=== PATIENT | female | born 1955 | race Caucasian/White ===

== ENCOUNTER 2018-10-09 14:24 | Inpatient (IN) | payer MEDICARE, OTHER ==
[~2018-10-09] VITALS: Ht 152.4 cm; Wt 68.9 kg
--- NOTE | 2018-10-09 14:44 | NUR ---
Dr Dutta at bedside talking to patient and daughter.
[2018-10-09] MEDS ORDERED: ESCI20TA PO (14:57)
[2018-10-09] MEDS ORDERED: RISP2TAB5 PO (14:57)
[2018-10-09] MEDS ORDERED: MEMA10TA PO (14:57)
[2018-10-09 15:11] LABS: BASOPHILS % (AUTO) 0.6 % (0.0-2.0); EOSINOPHILS # (AUTO) 0.2 K/uL (0.0-0.7); EOSINOPHILS % (AUTO) 1.9 % (0.0-7.0); HEMATOCRIT 34.7 % (31.2-41.9); HEMOGLOBIN 11.6 g/dL (10.9-14.3); LYMPHOCYTES % (AUTO) 22.7 % (20.5-51.5); MEAN CORPUSCULAR HEMOGLOBIN 28.7 uug (24.7-32.8); MEAN CORPUSCULAR HGB CONC 33 g/dL (32.3-35.6); MEAN CORPUSCULAR VOLUME 85.9 fL (75.5-95.3); MONOCYTES # (AUTO) 0.5 K/uL (2.0-10.0); MONOCYTES % (AUTO) 5.7 % (0.0-11.0); NEUTROPHILS % (AUTO) 69.1 % (38.5-71.5); PLATELET COUNT (AUTO) 339 K/uL (179-408); RED BLOOD CELL COUNT(AUTO) 4.04 MIL/uL (3.63-4.92); WHITE BLOOD COUNT (AUTO) 8.7 K/uL (3.8-11.8)
[2018-10-09 15:16] LABS: *BILIRUBIN,URIN NEGATIVE (NEGATIVE); *BLOOD, URINE NEGATIVE (NEGATIVE); *CLARITY,URINE CLEAR (CLEAR); *COLOR,URINE YELLOW (YELLOW); *KETONES,URINE NEGATIVE (NEGATIVE); *UROBILINOGEN,URINE 0.2 E.U./dl (NORMAL); LEUKOCYTE ESTERASE ,URINE NEGATIVE (NEGATIVE); NITRITE, URINE NEGATIVE (NEGATIVE); UGLUCOSE NEGATIVE (NEGATIVE)
[2018-10-09 15:17] LABS: CARBON DIOXIDE 27 mmol/L (21-32); CHLORIDE 104 mmol/L (98-107); CREATININE 0.7 mg/dL (0.6-1.3); GLUCOSE 162 mg/dL (74-106); POTASSIUM 3.7 mmol/L (3.5-5.1); UREA NITROGEN, BLOOD 10 mg/dL (7-18)
--- NOTE | 2018-10-09 15:20 | NUR ---
Urine sample received by patient and taken to lab.
[2018-10-09 15:21] LABS: ETHANOL < 3 MG/DL (0-0)
[2018-10-09 15:23] LABS: ALANINE AMINOTRANSFERASE 16 U/L (14-59); ALKALINE PHOSPHATASE 136 U/L (50-136); ASPARTATE AMINOTRANSFERASE 13 U/L (15-37); BILIRUBIN,DIRECT 0.1 mg/dL (0.0-0.2); BILIRUBIN,TOTAL 0.1 mg/dL (0.2-1.0); TOTAL PROTEIN, SERUM 7.6 g/dL (6.4-8.2)
[2018-10-09 15:29] LABS: *AMPHETAMINE, URINE NEGATIVE (NEGATIVE); *BARBITURATE, URINE NEGATIVE (NEGATIVE); *CANNABINOID, URINE NEGATIVE (NEGATIVE); *COCCAINE, URINE NEGATIVE (NEGATIVE); *OPIATE, URINE NEGATIVE (NEGATIVE); *PHENCYCLIDINE SCREEN,URINE NEGATIVE (NEGATIVE)
[2018-10-09 15:44] LABS: THYROID STIMULATING HORMONE 0.981 mIU/mL (0.358-3.740)
--- NOTE | 2018-10-09 15:50 | NUR ---
Patient taken to CT scan.
--- NOTE | 2018-10-09 15:52 | NUR ---
patient taken down for CT.
--- NOTE | 2018-10-09 16:00 | NUR ---
Patient returned from CT
--- NOTE | 2018-10-09 16:08 | NUR ---
Pt medically cleared by Dr Dutta. [facility] team called and spoke to Geovani Ferrer LCSW, ETA 1 hour.
--- NOTE | 2018-10-09 17:52 | NUR ---
Geovani Ferrer in the unit to examine patient.
--- NOTE | 2018-10-09 18:19 | NUR ---
Telephone report given to Tna Smith who questions valid reasons for hold. Crisis team shingle bolt cutter Geovani Ferrer present in the unit and aware.
--- NOTE | 2018-10-09 18:52 | NUR ---
If needed it patient will be transfer after shift report awaiting for medical data entry clerk to have transfer paper work ready.
--- NOTE | 2018-10-09 19:07 | NUR ---
Patient taken to room 145-a via rorono vitals stable
[2018-10-09] MEDS ORDERED: MAGNESIUM HYDROXIDE 30 ML LIQUID UDC PO PRN (20:45)
[2018-10-09] MEDS ORDERED: BLOOD SUGAR DIAGNOSTIC 1 EACH STRIP VI ONE (20:45)
[2018-10-09] MEDS ORDERED: MAG HYDROX/AL HYDROX/SIMETH 30 ML LIQUID UDC PO PRN (20:45)
[2018-10-09 21:25] VITALS: BP 129/59
--- NOTE | 2018-10-09 23:43 | NUR ---
PATIENT RECEIVED @ 1900 VIA [facility] FROM ER. PATIENT HAS FLAT AFFECT, DISORIENTED, AND CONFUSED. PATIENT IN NO APPARENT DISTRESS AND NO AGGRESSIVE BEHAVIOR NOTED WILL CONTINUE TO MONITOR AND REDIRECT NEEDED. PATIENT'S SKIN IS INTACT CHANGED INTO HOSPITAL GOWN AND CHECKED FOR CONTRABAND NONE NOTED. PATIENT HAS MEDICAL BRACELET PLACED IN THE SAFE. PATIENT GIVEN ADVISEMENT AND ADMISSION PACKET AT BEDSIDE. SPOKE WITH DAUGHTER MIESHA AND WAS GIVEN SOME INFORMATION ON PATIENT, PATIENT HAS NO MEDICAL HISTORY AND STATES THAT SHE IS UNABLE TO CARE FOR HER MOTHER AND THE PATIENT WAS STARTING TO TAKE MIESHA'S SEVEN YEAR OLD SON WITH HER. GAVE VISITING HOURS AND DIRECT PHONE NUMBER TO UNIT. PATIENT DENIES PAIN AT THIS TIME AND NO FACIAL GRIMACING NOTED, WILL CONTINUE TO MONITOR. BED IN LOWEST POSITION, BED LOCKED, AND BED ALARM ON WHILE IN BED. PATIENT IS AMBULATORY REQUIRES ASSISTANCE HAS A HISTORY OF FALLS, PHYSICAL THERAPY ORDERED.
[2018-10-10 07:05] LABS: BASOPHILS # (AUTO) 0.1 K/uL (0.0-8.0); BASOPHILS % (AUTO) 0.7 % (0.0-2.0); EOSINOPHILS # (AUTO) 0.2 K/uL (0.0-0.7); EOSINOPHILS % (AUTO) 1.9 % (0.0-7.0); HEMATOCRIT 36.3 % (31.2-41.9); HEMOGLOBIN 12.5 g/dL (10.9-14.3); LYMPHOCYTES # (AUTO) 2.6 K/uL (20.0-40.0); LYMPHOCYTES % (AUTO) 31.8 % (20.5-51.5); MEAN CORPUSCULAR HEMOGLOBIN 29.1 uug (24.7-32.8); MEAN CORPUSCULAR HGB CONC 34 g/dL (32.3-35.6); MEAN CORPUSCULAR VOLUME 84.7 fL (75.5-95.3); MONOCYTES # (AUTO) 0.6 K/uL (2.0-10.0); NEUTROPHILS # (AUTO) 4.8 K/uL (1.8-8.9); NEUTROPHILS % (AUTO) 58.6 % (38.5-71.5); PLATELET COUNT (AUTO) 359 K/uL (179-408); RED BLOOD CELL COUNT(AUTO) 4.29 MIL/uL (3.63-4.92); WHITE BLOOD COUNT (AUTO) 8.2 K/uL (3.8-11.8)
[2018-10-10 07:09] LABS: BILIRUBIN,TOTAL 0.3 mg/dL (0.2-1.0); CREATININE 0.7 mg/dL (0.6-1.3); TOTAL PROTEIN, SERUM 7.4 g/dL (6.4-8.2)
[2018-10-10 07:30] VITALS: BP 106/62
--- NOTE | 2018-10-10 11:40 | NUR ---
FIREARMS REPORT: Director Of Clinical Applications completed and submitted a [employer] firearms report for [address] Disability certification. A copy of report has been placed in patient chart.
--- NOTE | 2018-10-10 14:20 | NUR ---
Initial Discharge Planning Note: Patient currently resides at home [[address], [place] [address]] with her daughter Lois Birmingham [[phone]] and her 7-year old grandson. Patient's daughter requesting placement for patient as she is unable to provide 24/7 supervision for patient and patient has increased nomadic and delusional behavior. Machine Repairman will assist daugther with placement coordination. Machine Repairman will continue to meet with patient, and collaborate with patient, family, and MD on a safe and proper discharge plan.
[2018-10-10 16:00] VITALS: BP 135/70
[2018-10-10] MEDS: HALOPERIDOL 5 MG TABLET PO SCH (17:29)
--- NOTE | 2018-10-10 19:30 | NUR ---
Patient received into care, walking in hallway. Patient is alert and oriented x1. Patient has no complaints of pain or discomfort at this time. Reorientation needed to direct patient to room when patient asked for bathroom during change of shift. Will continue to monitor.
[2018-10-10 19:46] VITALS: BP 139/72
[2018-10-10] MEDS: DIVALPROEX 250 MG TABLET.DR PO SCH (20:09)
--- NOTE | 2018-10-10 20:56 | NUR ---
Patient refused prescribed depakote.
--- NOTE | 2018-10-11 06:00 | NUR ---
Patient confused and disoriented, sleeping just 1 hour this shift. Frequent visual checks found patient sitting on roommate's beds and other furniture in room. Frequent redirection and reorientation required to get patient to her own bed and her own room, when in hallway. Patient was not compliant with her prescribed depakote, refusing to take her medication as ordered. Nurse explained risks/benefits times three but patient still refused. Safety and fall precaution measures remain in place.
[2018-10-11 08:00] VITALS: BP 109/64
[2018-10-11] MEDS: HALOPERIDOL 5 MG TABLET PO SCH ×2 (08:46→17:59)
[2018-10-11] MEDS: DIVALPROEX 250 MG TABLET.DR PO SCH ×2 (08:46→20:18)
[2018-10-11] MEDS: ESCITALOPRAM OXALATE 10 MG TABLET PO SCH (08:46)
--- NOTE | 2018-10-11 12:30 | NUR ---
Gps/Keysmith- Patient had been wandering around the hallway, while in the activity room per RT.Yuliana observed patient lost her balance and sat on the floor.Assisted patient to a chair. Patient comfused, resistive to care, difficulty following directive even with product developer. Toileted, continent, assisted with her hygiene. Kept her up on her niranjan-chair, assisted with her lunch .
[2018-10-11] MEDS: LORAZEPAM 0.5 MG TABLET PO PRN ×2 (13:16→21:59)
[2018-10-11 16:00] VITALS: BP 117/59
--- NOTE | 2018-10-11 20:00 | NUR ---
Received patient sitting on gerichair, patient Kyrgyz speaking and speaks very little Kazakh. No complaints at the moment. Compliant with medications. Will continue to monitor.
[2018-10-11 21:19] VITALS: BP 114/72
[2018-10-11] MEDS: ACETAMINOPHEN 325 MG TABLET PO PRN (21:59)
--- NOTE | 2018-10-12 05:46 | NUR ---
Patient slept well after taking medication and being made comfortable in bed, total of 5.00 hours. No complaints were made. Attended all needs. Ensured safety and comfort. No other untoward events noted.
[2018-10-12 07:30] VITALS: BP 116/55
[2018-10-12] MEDS: DIVALPROEX 250 MG TABLET.DR PO SCH ×3 (08:48→20:16)
[2018-10-12] MEDS: ESCITALOPRAM OXALATE 10 MG TABLET PO SCH (08:48)
[2018-10-12] MEDS: HALOPERIDOL 5 MG TABLET PO SCH ×2 (08:48→17:27)
--- NOTE | 2018-10-12 10:28 | NUR ---
Gps/Athletic Scout- Confused, constant redirections, speech incoherent, needed verbal cueing in sequencing tasks, difficulty following simple directions. Monitored closely for safety, tends to wander around, goes room to room.
[2018-10-12 16:00] VITALS: BP 129/63
[2018-10-12 20:00] VITALS: BP 153/81
[2018-10-13] MEDS: LORAZEPAM 0.5 MG TABLET PO PRN ×2 (05:20→20:36)
[2018-10-13 07:30] VITALS: BP 140/74
[2018-10-13] MEDS: DIVALPROEX 250 MG TABLET.DR PO SCH ×3 (08:40→20:36)
[2018-10-13] MEDS: ESCITALOPRAM OXALATE 10 MG TABLET PO SCH (08:40)
[2018-10-13] MEDS: HALOPERIDOL 5 MG TABLET PO SCH ×2 (08:40→16:48)
--- NOTE | 2018-10-13 12:28 | NUR ---
Gps/Traffic Workforce Representative--Stayed in the activity room during lunch, not initiating to feed self. Fed w/ min. assist, encouraged to open eyes during meals, so she can see her foods.
--- NOTE | 2018-10-13 15:45 | NUR ---
Gps/Controls Designer- Sitting on the chair, asleep, offered to assist back to her bed to rest, refused.
[2018-10-13 16:00] VITALS: BP 135/65
--- NOTE | 2018-10-13 19:04 | NUR ---
Gps/Employment Officer-Patient's daughter, verbalized concerns regarding patient sleepiness, needed assist with her meal/dinner, unable to initiate tasks to feed self.
[2018-10-14 07:30] VITALS: BP 116/68
[2018-10-14] MEDS: HALOPERIDOL 5 MG TABLET PO SCH ×3 (08:49→20:09)
[2018-10-14] MEDS: DIVALPROEX 250 MG TABLET.DR PO SCH ×3 (08:49→20:08)
[2018-10-14] MEDS: ESCITALOPRAM OXALATE 10 MG TABLET PO SCH (08:50)
[2018-10-14 15:27] VITALS: BP 110/61
[2018-10-14] MEDS: LORAZEPAM 0.5 MG TABLET PO PRN (19:29)
[2018-10-14 20:35] VITALS: BP 142/62
[2018-10-15 07:30] VITALS: BP 113/56
[2018-10-15] MEDS: ESCITALOPRAM OXALATE 10 MG TABLET PO SCH (08:41)
[2018-10-15] MEDS: HALOPERIDOL 5 MG TABLET PO SCH ×3 (08:41→21:00)
[2018-10-15] MEDS: DIVALPROEX 250 MG TABLET.DR PO SCH ×3 (08:41→20:45)
[2018-10-15 15:22] VITALS: BP 115/60
--- NOTE | 2018-10-15 21:00 | NUR ---
HELD Haldol. Patient was asleep. Able to be awaken but fell right back asleep. Will continue to monitor.
[2018-10-15 21:53] VITALS: BP 134/83
[2018-10-16] MEDS: ACETAMINOPHEN 325 MG TABLET PO PRN (00:41)
[2018-10-16] MEDS: LORAZEPAM 0.5 MG TABLET PO PRN (01:05)
--- NOTE | 2018-10-16 01:05 | NUR ---
Patient became agitated. Ativan given. Will continue to monitor.
--- NOTE | 2018-10-16 06:27 | NUR ---
Patient became agitated early this morning. She started to disrobe and call out names not familiar to us. PRN Ativan given, patient showered and she is asleep at the moment. Vital signs stable. Med Compliant. Slept intermittently t/o shift. Safety and comfort measures maintained t/o shift. All needs met.
[2018-10-16 07:30] VITALS: BP 144/61
[2018-10-16] MEDS: ESCITALOPRAM OXALATE 10 MG TABLET PO SCH (08:50)
[2018-10-16] MEDS: DIVALPROEX 250 MG TABLET.DR PO SCH ×3 (08:50→20:16)
[2018-10-16] MEDS: HALOPERIDOL 5 MG TABLET PO SCH ×3 (08:50→20:16)
[2018-10-16] MEDS ORDERED: HALOPERIDOL LACTATE 10 MG/5 ML ORAL SOLUTION UDC PO SCH (09:00)
[2018-10-16 16:00] VITALS: BP 156/78
[2018-10-16] MEDS: ATORVASTATIN 40 MG TABLET PO SCH (20:16)
[2018-10-16 20:50] VITALS: BP 121/58
[2018-10-17] MEDS: TEMAZEPAM 7.5 MG CAPSULE PO PRN (01:58)
[2018-10-17 07:30] VITALS: BP 95/63
[2018-10-17] MEDS: DIVALPROEX 250 MG TABLET.DR PO SCH ×3 (09:32→20:12)
[2018-10-17] MEDS: HALOPERIDOL 5 MG TABLET PO SCH ×3 (09:32→20:12)
[2018-10-17] MEDS: ESCITALOPRAM OXALATE 10 MG TABLET PO SCH (09:32)
[2018-10-17 16:00] VITALS: BP 138/75
[2018-10-17 20:00] VITALS: BP 137/47
[2018-10-17] MEDS: ATORVASTATIN 40 MG TABLET PO SCH (20:11)
[2018-10-18] MEDS: TEMAZEPAM 7.5 MG CAPSULE PO PRN (01:58)
[2018-10-18 07:56] VITALS: BP 124/58
[2018-10-18] MEDS: DIVALPROEX 250 MG TABLET.DR PO SCH ×3 (08:30→20:47)
[2018-10-18] MEDS: HALOPERIDOL 5 MG TABLET PO SCH ×3 (08:30→20:47)
[2018-10-18] MEDS: ESCITALOPRAM OXALATE 10 MG TABLET PO SCH (08:31)
[2018-10-18] MEDS: ACETAMINOPHEN 325 MG TABLET PO PRN (12:30)
--- NOTE | 2018-10-18 12:40 | NUR ---
Patient was feeling hot and sweating, temp is 100 and i gave Tylenol
[2018-10-18 16:00] VITALS: BP 145/57
--- NOTE | 2018-10-18 19:04 | NUR ---
Patient is afebrile, Tylenol helped.
[2018-10-18 20:21] VITALS: BP 127/69
[2018-10-18] MEDS: ATORVASTATIN 40 MG TABLET PO SCH (20:47)
--- NOTE | 2018-10-19 06:39 | NUR ---
GPS. Patient was compliant with the medication regimen but required assistance of leather polisher and repeated reorienting. Ambulated 2 times to the bathroom with 2 person assist, no BM. Slept 10 hours, no PRN meds given. No SI or hallucinations reported or noted. Behavior is calm. Will continue POC and monitoring for safety.
[2018-10-19 08:03] VITALS: BP 155/62
[2018-10-19] MEDS: DIVALPROEX 250 MG TABLET.DR PO SCH ×3 (08:32→20:04)
[2018-10-19] MEDS: ESCITALOPRAM OXALATE 10 MG TABLET PO SCH (08:32)
[2018-10-19] MEDS: HALOPERIDOL 5 MG TABLET PO SCH ×3 (08:32→20:04)
[2018-10-19 16:00] VITALS: BP 147/72
[2018-10-19] MEDS: ATORVASTATIN 40 MG TABLET PO SCH (20:04)
[2018-10-19 21:11] VITALS: BP 154/75
[2018-10-20] MEDS: TEMAZEPAM 7.5 MG CAPSULE PO PRN ×2 (00:41→22:11)
[2018-10-20 06:50] LABS: BASOPHILS % (AUTO) 0.5 % (0.0-2.0); EOSINOPHILS # (AUTO) 0.6 K/uL (0.0-0.7); EOSINOPHILS % (AUTO) 5.9 % (0.0-7.0); HEMATOCRIT 37.9 % (31.2-41.9); HEMOGLOBIN 12.7 g/dL (10.9-14.3); LYMPHOCYTES # (AUTO) 2.7 K/uL (20.0-40.0); LYMPHOCYTES % (AUTO) 28.1 % (20.5-51.5); MEAN CORPUSCULAR HEMOGLOBIN 28.9 uug (24.7-32.8); MEAN CORPUSCULAR HGB CONC 34 g/dL (32.3-35.6); MEAN CORPUSCULAR VOLUME 86.3 fL (75.5-95.3); MONOCYTES # (AUTO) 0.7 K/uL (2.0-10.0); MONOCYTES % (AUTO) 7.4 % (0.0-11.0); NEUTROPHILS # (AUTO) 5.5 K/uL (1.8-8.9); NEUTROPHILS % (AUTO) 58.1 % (38.5-71.5); PLATELET COUNT (AUTO) 347 K/uL (179-408); RED BLOOD CELL COUNT(AUTO) 4.39 MIL/uL (3.63-4.92); WHITE BLOOD COUNT (AUTO) 9.5 K/uL (3.8-11.8)
[2018-10-20 07:00] LABS: BILIRUBIN,TOTAL 0.3 mg/dL (0.2-1.0); CREATININE 0.7 mg/dL (0.6-1.3); POTASSIUM 3.6 mmol/L (3.5-5.1); TOTAL PROTEIN, SERUM 7.5 g/dL (6.4-8.2)
[2018-10-20 08:10] VITALS: BP 148/71
[2018-10-20] MEDS: DIVALPROEX 250 MG TABLET.DR PO SCH ×3 (08:51→20:34)
[2018-10-20] MEDS: ESCITALOPRAM OXALATE 10 MG TABLET PO SCH (08:51)
[2018-10-20] MEDS: HALOPERIDOL 5 MG TABLET PO SCH ×2 (08:51→16:24)
[2018-10-20 15:57] VITALS: BP 114/53
[2018-10-20] MEDS ORDERED: HYDROCORTISONE 0.5% CREAM 28.35 GM TUBE TOP PRN (17:00)
--- NOTE | 2018-10-20 19:20 | NUR ---
RECEIVED PT AWAKE ON BED WITH HER DAUGHTER. DAUGHTER ASSISTING HER MOTHER TO THE BATHROOM. PT HAVE EPISODES OF FORGETFULNESS. PT REDIRECTABLE AND NEEDS ORIENTATION. PLEASANT WHEN APPROACH. PT SHOWS NO SIGNS OF ACUTE DISTRESS. SAFETY AND COMFORT PROVIDED. WILL CONTINUE TO MONITOR.
[2018-10-20 19:43] VITALS: BP 154/76
[2018-10-20] MEDS: ATORVASTATIN 40 MG TABLET PO SCH (20:34)
[2018-10-20] MEDS ORDERED: HALOPERIDOL 5 MG TABLET PO SCH (21:00)
[2018-10-20 21:30] VITALS: BP 130/82
[2018-10-20] MEDS: ACETAMINOPHEN 325 MG TABLET PO PRN (22:11)
[2018-10-21] MEDS: LORAZEPAM 0.5 MG TABLET PO PRN (04:58)
--- NOTE | 2018-10-21 06:59 | NUR ---
PT SLEPT 8.3 HOUR. PT IN NO ACUTE DISTRESS. PT KEEPS ON SAYING SOMEONE'S NAME AND RESTLESS. PT GIVEN RESTORIL AT 2211H AND TYLENOL FOR GENERALIZED PAIN. PT NEEDS REORIENTATION AND REDIRECTION. PT COOPERATIVE WITH CARE AND COMPLIANT WITH HER MEDICATION. PT WAS GIVEN 0458H ATIVAN . PT RESTLESS AND KEEP SAYING HER DAUGHTER'S NAME. PT NEEDS REORIENTATION. SAFETY AN COMFORT PROVIDED. WILL ENDORSE ACCORDINGLY TO INCOMING NURSE FOR CONTINUITY OF CARE.
[2018-10-21 07:30] VITALS: BP 100/52
[2018-10-21] MEDS: ESCITALOPRAM OXALATE 10 MG TABLET PO SCH (08:40)
[2018-10-21] MEDS: DIVALPROEX 250 MG TABLET.DR PO SCH (08:40)
[2018-10-21] MEDS ORDERED: HALOPERIDOL 5 MG TABLET PO SCH (09:00)
--- NOTE | 2018-10-21 10:12 | NUR ---
Discharge Note: Patient will be discharged today to [facility] [[address] [place] [address]; ].Please arrange ambulance for this patient at 1:30pm. Spoke to Diana, Certified Legal Investigator � who stated facility is ready to accept patient today. Spoke with patient�s daughter � Lois Birmingham [[phone]] who is agreeable with discharge plan. Patient is alert and oriented x1-2 and denies suicidal ideation. Patient will follow up with Dr. Stephen (Pickling Machine Operator) and Dr. Sanabria (Psychiatrist). Patient was provided with outpatient mental health resources to [facility] .
--- NOTE | 2018-10-21 14:30 | NUR ---
GPS: Nursing Notes: Discharge Notes: Patient is awake and responding to her name, compliant with her medications, cooperative with nursing care, needs assistance with nursing care, denies any SI/HI, denies any AH/VH, denies any SOB, discharge to [facility] at [address] [place] [address] , report given to facility's supervisor show operations, Celena SALES supervisor show operations, patient's daughter, Ann Birmingham took her mother belongings, ambulance's straddle truck driver took the medical bracelet to the facility. rodent control worker spoke with patient�s daughter � Lois Birmingham [[phone]] who is agreeable with discharge plan. Patient is alert and oriented x1. Patient will follow up with Dr. Solorzano (Ceo & Co Founder) and Dr. Sanabria (Psychiatrist). Patient was provided with outpatient mental health resources to [facility] .
== END 2018-10-21 14:30 | DRG 885 ==
LOC: ER 14:28 → GPS 18:41
PROVIDERS: ADMIT Psychiatry & Neurology Psychiatry
DX: F29 Unspecified psychosis not due to a substance or known physiological condition (principal); F02.81 Dementia in other diseases classified elsewhere, unspecified severity, with behavioral disturbance; G30.9 Alzheimer's disease, unspecified; Z91.83 Wandering in diseases classified elsewhere; G93.89 Other specified disorders of brain; R73.03 Prediabetes; Z79.899 Other long term (current) drug therapy; E78.5 Hyperlipidemia, unspecified
CPT/HCPCS: 36415; 70450; 71045; 80164; 80307; 84443; 85025; 93005; A4663; G0480; J3490